=== PATIENT | female | born 1975 | race American Indian/Alaskan Native ===

== ENCOUNTER 2017-06-18 10:02 | Emergency (ER) | payer OTHER ==
[2017-06-18 10:09] VITALS: BP 107/64
[2017-06-18] MEDS ORDERED: ZOFRAN ODT ONE (10:40)
[2017-06-18] MEDS ORDERED: ZOFRAN ONE (10:40)
[2017-06-18] MEDS ORDERED: ZOFRAN IM ONE (10:45)
[2017-06-18] MEDS ORDERED: ZOFRAN ODT PO ONE (10:45)
[2017-06-18 11:00] LABS: Hematocrit 30.5 % (30.3-42.9); Hemoglobin 9.4 gm/dl (10.1-14.3); Mean Corpuscular HGB Conc 31 % (30-34); Mean Corpuscular Volume 71 fl (79-97); Platelet Count 293 K/mm3 (140-440); Red Blood Count 4.32 M/mm3 (3.65-5.03)
[2017-06-18 11:01] LABS: Mean Corpuscular Hemoglobin 22 pg (28-32)
[2017-06-18 11:10] LABS: Bacteria,Urine 1+ /HPF (Negative); Bilirubin,Urine NEG (Negative); Blood,Urine LG (Negative); Color,Urine Red (Yellow); Mucus,Urine FEW /HPF; Urobilinogen,Urine < 2.0 mg/dL (<2.0)
[2017-06-18 11:13] LABS: Alanine Aminotransferase 12 units/L (7-56); Albumin 4.4 g/dL (3.9-5); BUN/Creatinine Ratio 14; Blood Urea Nitrogen 7 mg/dL (7-17); Calcium 9.5 mg/dL (8.4-10.2); Hemolysis Index 6
[2017-06-18 11:41] LABS: Basophils % (Manual) 0 % (0.0-1.8); Eosinophils % (Manual) 0 % (0.0-4.3); Total Cells Counted 100
[2017-06-18 11:42] LABS: RBC Morphology Normal
[2017-06-18] MEDS ORDERED: REGLAN IV ONE (12:30)
[2017-06-18] MEDS ORDERED: DILAUDID IV ONE (12:31)
[2017-06-18] MEDS ORDERED: NACL 0.9% 1000 ML 1,000 ML IV ONE (12:32)
--- NOTE | 2017-06-18 12:35 | Emergency Department Report ---
ED General Adult HPI - General Chief complaint: Abdominal Pain Stated complaint: ABD PAIN Time Seen by Provider: 06/18/17 12:21 Source: patient, family Mode of arrival: Ambulatory Limitations: Language Barrier - History of Present Illness Initial comments: Patient presents to emergency department with abdominal pain. The Patient's sister states the patient has significant nausea and vomiting monthly with her cycles with abdominal pain. Today the abdominal pain is slightly worse and her nausea vomiting is worse as well. Patient has not had a fever at home and denies chest pain, headache. -: Sudden Location: abdomen Radiation: non-radiation Consistency: constant Improves with: none Worsens with: none Associated Symptoms: nausea/vomiting Treatments Prior to Arrival: none - Related Data Previous Rx's Medication Instructions Recorded Last Taken Type Acetaminophen/Codeine [Tylenol 1 tab PO Q6H PRN #24 tab 06/18/17 Unknown Rx /Codeine # 3 tab] Ibuprofen [Motrin] 800 mg PO Q8HR PRN #30 tablet 06/18/17 Unknown Rx Promethazine [Phenergan TAB] 25 mg PO Q6HR PRN #20 tab 06/18/17 Unknown Rx Allergies Allergy/AdvReac Type Severity Reaction Status Date / Time No Known Allergies Allergy Verified 06/18/17 10:45 ED Review of Systems ROS: Stated complaint: ABD PAIN Other details as noted in HPI Comment: review of systems was done via [employer] party secy Constitutional: denies: chills, fever Eyes: denies: eye pain, eye discharge, vision change ENT: denies: ear pain, throat pain Respiratory: denies: cough, shortness of breath, wheezing Cardiovascular: denies: chest pain, palpitations Endocrine: no symptoms reported Gastrointestinal: abdominal pain, nausea, vomiting. denies: diarrhea Genitourinary: denies: urgency, dysuria, discharge Musculoskeletal: denies: back pain, joint swelling, arthralgia Skin: denies: rash, lesions Neurological: denies: headache, weakness, paresthesias Psychiatric: denies: anxiety, depression Hematological/Lymphatic: denies: easy bleeding, easy bruising ED Past Medical Hx - Past Medical History Previous Medical History?: No - Surgical History Past Surgical History?: Yes Additional Surgical History: right foot surgery - Social History Smoking Status: Never Smoker Substance Use Type: None - Medications Home Medications: Home Medications Medication Instructions Recorded Confirmed Last Taken Type Acetaminophen/Codeine [Tylenol 1 tab PO Q6H PRN #24 tab 06/18/17 Unknown Rx /Codeine # 3 tab] Ibuprofen [Motrin] 800 mg PO Q8HR PRN #30 tablet 06/18/17 Unknown Rx Promethazine [Phenergan TAB] 25 mg PO Q6HR PRN #20 tab 06/18/17 Unknown Rx ED Physical Exam - General Limitations: Language Barrier General appearance: alert, in no apparent distress - Head Head exam: Present: atraumatic, normocephalic - Eye Eye exam: Present: normal appearance, PERRL, EOMI - ENT ENT exam: Present: other (dry mucous membranes) - Neck Neck exam: Present: normal inspection - Respiratory Respiratory exam: Present: normal lung sounds bilaterally. Absent: respiratory distress, wheezes, rales, rhonchi - Cardiovascular Cardiovascular Exam: Present: regular rate, normal rhythm. Absent: systolic murmur, diastolic murmur, rubs, gallop - GI/Abdominal GI/Abdominal exam: Present: soft, tenderness (diffusely tender), normal bowel sounds. Absent: distended - Extremities Exam Extremities exam: Present: normal inspection - Back Exam Back exam: Present: normal inspection - Neurological Exam Neurological exam: Present: alert, oriented X3, CN II-XII intact. Absent: motor sensory deficit - Psychiatric Psychiatric exam: Present: normal affect, normal mood - Skin Skin exam: Present: warm, dry, normal color. Absent: rash ED Course Vital Signs 06/18/17 10:04 Temperature 98.9 F Pulse Rate 74 Respiratory 18 Rate Blood Pressure 107/64 O2 Sat by Pulse 97 Oximetry ED Medical Decision Making - Lab Data Result diagrams: 06/18/17 10:29 06/18/17 10:29 - Medical Decision Making Discussed results with the patient and her sister who depression as secy Discussed the patient is to follow up with her [employer]ICE for uterine fibroids and dysfunctional uterine bleeding The patient has been diagnosed with uterine fibroids in the past Critical care attestation.: If time is entered above; I have spent that time in minutes in the direct care of this critically ill patient, excluding procedure time. ED Disposition Clinical Impression: Dysmenorrhea, Uterine fibroid, Dysfunctional uterine bleeding Disposition: TO HOME OR SELFCARE Is pt being admited?: No Does the pt Need Aspirin: No Condition: Stable Instructions: Abdominal Pain (ED), Dysmenorrhea (ED), Dysfunctional Uterine Bleeding (ED), Uterine Fibroids (ED) Additional Instructions: Return if symptoms worsen Prescriptions: Acetaminophen/Codeine [Tylenol /Codeine # 3 tab] 1 tab PO Q6H PRN #24 tab PRN Reason: Pain Ibuprofen [Motrin] 800 mg PO Q8HR PRN #30 tablet PRN Reason: Pain Promethazine [Phenergan TAB] 25 mg PO Q6HR PRN #20 tab PRN Reason: Nausea Referrals: PRIMARY CARE, [Primary Care Provider] - 3-5 Days CANDIS GOODSON MD [Staff Physician] - 3-5 Days Time of Disposition: 15:35
--- NOTE | 2017-06-18 15:09 | Cat Scan Report ---
CT ABDOMEN PELVIS WITHOUT CONTRAST: HISTORY: abdominal pain. COMPARISON: none. TECHNIQUE: Helical CT in 1.25mm intervals without IV contrast. Sagittal and coronal reconstructions. FINDINGS: Lung bases: Normal. Liver: Normal. Biliary system: Normal. Pancreas: Normal. Spleen: Normal. Kidneys/ureters/bladder: The kidneys are normal size and position. 3 calyceal stones are identified in the right kidney. 2 calyceal stones are identified in the left kidney. No ureteral stone or hydronephrosis. No obvious mass or cystic disease. The bladder is unremarkable. Adrenal glands: Normal. Aorta: Normal. Intestines: Unremarkable liver no oral contrast was administered. Appendix: Normal. Pelvic viscera: The uterus is markedly enlarged which probably represents underlying fibroid disease. No adnexal mass or large cyst. Ascites: None. Adenopathy: None. Musculoskeletal: Normal. IMPRESSION: No acute abdominal process. Bilateral nephrolithiasis, nonobstructing. Enlarged uterus suggestive of uterine fibroid disease.
== END 2017-06-18 16:06 | disposition home or self-care (01) ==
LOC: ED 10:02
DX: D25.9 Leiomyoma of uterus, unspecified (principal)
CPT/HCPCS: 36415; 74176; 80053; 81001; 84703; 85007; 85025; 96361; 96372; 96374; 96375; 99284; J1170; J2405; J2765; J7030; Q0162